=== PATIENT | female | born 1965 | race Caucasian/White ===

== ENCOUNTER 2017-02-15 11:31 | Inpatient (IN) | payer OTHER ==
[~2017-02-15] VITALS: Ht 167.6 cm; Wt 54.8 kg
[2017-02-15] VITALS (9 sets, daily range): BP systolic 138–169; BP diastolic 79–99; PULSE 61–95; RESP 16–18; TEMP 96.5–99.1; O2SAT 96–100
--- NOTE | 2017-02-15 11:49 | PD ---
Physical Exam Time Seen by Provider: 11:47 Narrative 51 y/o female with 5-6 days of fatigue sent here by psychiatrist for abnormal labs. Hgb 3.4, wbc 2., PLT 83. Vital signs reviewed. Seen at triage desk. Awaiting bed placement. Data Data Last Documented VS Vital Signs Date Time Temp Pulse Resp B/P Pulse Ox O2 Delivery O2 Flow Rate FiO2 02/15/17 11:32 99.1 153/79 Room Air [facility] Medical Record Reviewed: Yes Supervised Visit with BOBBY: No Irvin Brizuela Feb 15, 2017 11:49
[2017-02-15 11:57] LABS: MEAN CORPUSCULAR HGB CONC 27.2 % (32.0-36.0)
[2017-02-15 12:29] LABS: AUTOMATED NEUTROPHIL # 2.4 TH/MM3 (1.8-7.7); BASOPHIL % 0.7 % (0.0-2.0); EOSINOPHIL # 0.1 TH/MM3 (0-0.4); EOSINOPHIL % 1.8 % (0.0-4.0); LYMPH % 15.8 % (9.0-44.0); LYMPHOCYTE # 0.5 TH/MM3 (1.0-4.8); MEAN CELL VOLUME 65.4 FL (80.0-100.0); MEAN CORPUSCULAR HEMOGLOBIN 17.8 PG (27.0-34.0); MONO % 5.8 % (0.0-8.0); NEUT % 75.9 % (16.0-70.0); PLATELET COUNT 86 TH/MM3 (150-450); RED BLOOD COUNT 2.35 MIL/MM3 (4.00-5.30); RED CELL DISTRIBUTION WIDTH 22.2 % (11.6-17.2); WHITE BLOOD COUNT 3.2 TH/MM3 (4.0-11.0)
[2017-02-15 12:31] LABS: HEMO FLAGS AUTO DIFF
[2017-02-15 12:38] LABS: HEMATOCRIT 15.3 % (35.0-46.0)
[2017-02-15 12:39] LABS: APTT (PATIENT) 22.3 SEC (24.3-30.1); PROTHROMBIN TIME - PATIENT 10.5 SEC (9.8-11.6)
[2017-02-15 12:52] LABS: ALT (GPT) 20 U/L (10-53); ANION GAP 6 MEQ/L (5-15); AST (GOT) 12 U/L (15-37); BICARBONATE 24.8 MEQ/L (21.0-32.0); BLOOD UREA NITROGEN 18 MG/DL (7-18); CHLORIDE 110 MEQ/L (98-107); GLOMERULAR FILTRATION RATE 73 ML/MIN (>89); POTASSIUM 4.1 MEQ/L (3.5-5.1); SODIUM (NA) 141 MEQ/L (136-145)
[2017-02-15 12:55] LABS: ALKALINE PHOSPHATASE 85 U/L (45-117); TOTAL BILIRUBIN ADULT 0.6 MG/DL (0.2-1.0)
[2017-02-15 13:24] LABS: OVALOCYTES 1+ (NORMAL); TEARDROP RBCS 1+ (NORMAL)
[2017-02-15 13:25] LABS: PLATELET ESTIMATE SMEAR LOW (NORMAL); PLATELET MORPHOLOGY ENLARGED (NORMAL); SCAN/DIFF AUTO DIFF CONFIRMED
[2017-02-15] MEDS ORDERED: SODIUM CHLOR 0.9% 1000 ML INJ 1,000 ML IV SCH (13:59)
[2017-02-15] MEDS ORDERED: SODIUM CHLOR 0.9% 250 ML INJ 250 ML IV ONE (14:00)
[2017-02-15] MEDS ORDERED: ACETAMINOPHEN 325 MG TAB PO ONE (14:00)
[2017-02-15] MEDS ORDERED: FAMOTIDINE 20 MG/2 ML VIAL IV PUSH ONE (14:15)
[2017-02-15] MEDS ORDERED: PANTOPRAZOLE SODIUM 40 MG VIAL IVP ONE (14:15)
--- NOTE | 2017-02-15 15:03 | PD ---
HPI Chief Complaint: Abnormal Results Time Seen by Provider: 15:02 Travel History International Travel<30 days: No Contact w/Intl Traveler<30days: No Traveled to known affect area: No History of Present Illness HPI 51-year-old female that presents to the ED for evaluation of abnormal results. Per patient she has a history of GI bleeds in the past and has needed transfusions in the past. Per patient she has had dark stools but they became more normal 3 days ago. Per patient she's been feeling fatigued and has had a headache as well as week. Per patient she has had no trista bleeding otherwise. She takes no blood thinners. She states that she's had colonoscopies and EGDs done last time 6 months ago which were essentially unremarkable. Patient has not seen her doctor for this. Per patient she is recently moving here from a different location. Per patient she has not doctors in the area. Per patient her headache is 7 out of 10. She denies any head injury or loss of consciousness. She does have a history of depression here per patient she does have a history of anemia in the past. Per patient her symptoms usually worsened with stress. She is not sure as to what she's had but from what she tells me appears that she has peptic ulcer disease. PFSH Past Medical History Anemia: Yes Bipolar Disorder: Yes Depression: Yes Gastrointestinal Disorders: Yes ("upper GI ulcers") Thyroid Disease: Yes (hypo) Influenza Vaccination: No ?: Not Social History Alcohol Use: No Tobacco Use: No (5 cigs a day) Substance Use: Yes (THC every so often) Allergies-Medications (Allergen,Severity, Reaction): Coded Allergies: No Known Allergies (Unverified , 02/15/17) Reported Meds & Prescriptions Reported Meds & Active Scripts Active Reported Olanzapine 5 Mg Tab 5 Mg PO HS Fluoxetine (Fluoxetine HCl) 20 Mg Capsule 20 Mg PO DAILY Review of Systems Except as stated in HPI: all other systems reviewed are Neg Physical Exam Narrative GENERAL: SKIN: Warm and dry. HEAD: Atraumatic. Normocephalic. EYES: Pupils equal and round. No scleral icterus. No injection or drainage. ENT: No nasal bleeding or discharge. Mucous membranes pink and moist. Tongue is midline. No uvula deviation. NECK: Trachea midline. No JVD. CARDIOVASCULAR: Regular rate and rhythm. No murmurs, S3, S4. RESPIRATORY: No accessory muscle use. Clear to auscultation. Breath sounds equal bilaterally. GASTROINTESTINAL: Abdomen soft, non-tender, nondistended. Hepatic and splenic margins not palpable. MUSCULOSKELETAL: Extremities without clubbing, cyanosis, or edema. No obvious deformities. Full range of motion of the upper and lower extremities bilaterally. 2+ pulses bilaterally. NEUROLOGICAL: Awake and alert. No obvious cranial nerve deficits. Motor grossly within normal limits. Five out of 5 muscle strength in the arms and legs. Normal speech. PSYCHIATRIC: Appropriate mood and affect; insight and judgment normal. Data Data Last Documented VS Vital Signs Date Time Temp Pulse Resp B/P Pulse Ox O2 Delivery O2 Flow Rate FiO2 02/15/17 14:34 83 18 138/82 100 Room Air 02/15/17 14:29 2 02/15/17 11:32 99.1 Orders Type And Screen (02/15/17 11:55) Complete Blood Count With Diff (02/15/17 11:55) Comprehensive Metabolic Panel (02/15/17 11:55) Act Partial Throm Time (Ptt) (02/15/17 11:55) Prothrombin Time / Inr (Pt) (02/15/17 11:55) Red Blood Cells (Rbc) (02/15/17 13:58) Blood Product Administration .UPON TRANSFUSION (02/15/17 13:58) Sodium Chlor 0.9% 250 Ml Inj (Ns 250 Ml (02/15/17 14:00) Acetaminophen (Tylenol) (02/15/17 14:00) Sodium Chlor 0.9% 1000 Ml Inj (Ns 1000 M (02/15/17 13:59) Pantoprazole Inj (Protonix Inj) (02/15/17 14:15) Famotidine Inj (Pepcid Inj) (02/15/17 14:15) Pantoprazole Inj (Protonix Inj) (02/15/17 15:15) Acetamin-Hydrocod 325-5 Mg ([place] 5-325 (02/15/17 15:30) Admit To Inpatient (02/15/17 ) Vital Signs (Adult) Q4H (02/15/17 15:43) Activity Oob Ad Juanita (02/15/17 15:43) Intake + Output MARISOL.QSHIFT (02/15/17 15:43) Diet Liquid (02/15/17 Dinner) Sodium Chloride 0.9% Flush (Ns Flush) (02/15/17 15:45) Sodium Chloride 0.9% Flush (Ns Flush) (02/15/17 21:00) Pantoprazole (Protonix) (02/16/17 09:00) Red Blood Cells (Rbc) (02/15/17 15:43) Inpatient Certification (02/15/17 ) Hematocrit (Hct) (02/16/17 06:00) Hemoglobin (Hgb) (02/16/17 06:00) Blood Product Administration .UPON TRANSFUSION (02/15/17 15:43) Instruction (02/15/17 15:43) Admit Order (Ed Use Only) (02/15/17 15:51) Labs Laboratory Tests Test 02/15/17 02/15/17 02/15/17 12:07 14:28 15:43 White Blood Count 3.2 TH/MM3 Red Blood Count 2.35 MIL/MM3 Hemoglobin 4.2 GM/DL Hematocrit 15.3 % Mean Corpuscular Volume 65.4 FL Mean Corpuscular Hemoglobin 17.8 PG Mean Corpuscular Hemoglobin 27.2 % Concent Red Cell Distribution Width 22.2 % Platelet Count 86 TH/MM3 Mean Platelet Volume 9.4 FL Neutrophils (%) (Auto) 75.9 % Lymphocytes (%) (Auto) 15.8 % Monocytes (%) (Auto) 5.8 % Eosinophils (%) (Auto) 1.8 % Basophils (%) (Auto) 0.7 % Neutrophils # (Auto) 2.4 TH/MM3 Lymphocytes # (Auto) 0.5 TH/MM3 Monocytes # (Auto) 0.2 TH/MM3 Eosinophils # (Auto) 0.1 TH/MM3 Basophils # (Auto) 0.0 TH/MM3 CBC Comment AUTO DIFF Differential Comment AUTO DIFF CONFIRMED Platelet Estimate LOW Platelet Morphology Comment ENLARGED Tear Drop Cells 1+ Ovalocytes 1+ Prothrombin Time 10.5 SEC Prothromb Time International 1.0 RATIO Ratio Activated Partial 22.3 SEC Thromboplast Time Sodium Level 141 MEQ/L Potassium Level 4.1 MEQ/L Chloride Level 110 MEQ/L Carbon Dioxide Level 24.8 MEQ/L Anion Gap 6 MEQ/L Blood Urea Nitrogen 18 MG/DL Creatinine 0.83 MG/DL Estimat Glomerular Filtration 73 ML/MIN Rate Random Glucose 85 MG/DL Calcium Level 8.6 MG/DL Total Bilirubin 0.6 MG/DL Aspartate Amino Transf 12 U/L (AST/SGOT) Alanine Aminotransferase 20 U/L (ALT/SGPT) Alkaline Phosphatase 85 U/L Total Protein 7.2 GM/DL Albumin 3.8 GM/DL Blood Type A POSITIVE Antibody Screen NEGATIVE Crossmatch Leukocyte-Reduced Leukocyte-Reduced Red Blood Red Blood Cells Cells Blood Bank Comment MDM Medical Decision Making Medical Screen Exam Complete: Yes Emergency Medical Condition: Yes Medical Record Reviewed: Yes Interpretation(s) CBC & BMP Diagram 02/15/17 12:07 coags WNL LFTs WNL Differential Diagnosis Anemia versus symptomatic anemia versus bleeding versus GI bleed versus normal exam Narrative Course 51-year-old female that presents to the ED for evaluation of symptomatic anemia. Patient was properly examined and was found to have signs and symptoms consistent appears to be anemia. Pulse was done at triage that showed a hemoglobin of 4.4. She has a history of GI bleeds but Hemoccult here was done and was negative. At this time recommendation is for blood transfusion. Patient was started on protonic secondary to her history of GI bleed. Case was discussed with Dr. Keller who agrees to admission. Patient agrees with this plan. Patient was admitted for symptomatic anemia. Dr Demarco agrees to admission. HemaPrompt Point of Care Internal Pos. & Neg. Controls: Passed Fecal Specimen Occult Blood: Negative Diagnosis Primary Impression: Anemia Qualified Code: D64.9 - Anemia, unspecified type Admitting Information Admitting Physician Requests: Chito Jones Feb 15, 2017 15:03
[2017-02-15] MEDS ORDERED: OLAN5TAB PO (15:10)
[2017-02-15] MEDS ORDERED: FLUO20CA12 PO (15:10)
[2017-02-15] MEDS ORDERED: PANTOPRAZOLE INJ 80 MG in SODIUM CHLORIDE 0.9% INJ 100 ML IV SCH (15:15)
[2017-02-15] MEDS ORDERED: ACETAMINOPHEN/HYDROcodone 325 MG/5 MG TAB PO ONE ×2 (15:30→23:15)
[2017-02-15] MEDS ORDERED: SODIUM CHLORIDE 0.9% FLUSH 10 ML FLUSH IV FLUSH PRN (15:45)
--- NOTE | 2017-02-15 17:44 | HHI.HP ---
[facility] Service [facility] Primary Care Physician No Primary Care Physician Admission Diagnosis symptomatic anemia, GI bleeding history Diagnoses: (1) Anemia due to gastrointestinal blood loss Diagnosis: Principal Chief Complaint: Dizzy, tired Travel History International Travel<30 Days: No Contact w/Intl Traveler <30 Da: No Traveled to Known Affected Are: No History of Present Illness 51-year-old white female with a history bipolar, depression was seen at [facility] and sent here after findings of low blood count. She states that during the past month she's had on and off black tarry stools. She states during the past week she has not seen any black stools or bloody stools. She does have history of peptic ulcer disease and had a EGD colonoscopy performed at [facility] a year ago. She states that she does not take PPI or any [id number] medication for this due to her financial challenges. She states that she does not take [id number] aspirin or NSAIDs. She denies any associated abdominal pain with these symptoms. She states that she prefers to not undergo another invasive procedure such as EGD colonoscopy she responds the blood transfusion. She is currently feeling anxious is requesting medications. She was just started on Prozac and Zyprexa by physicians at the [facility] Review of Systems Constitutional: COMPLAINS OF: Fatigue, Dizziness, DENIES: Fever, Chills, Change in appetite Endocrine: DENIES: Heat/cold intolerance Eyes: DENIES: Blurred vision, Eye pain, Vision loss Ears, nose, mouth, throat: DENIES: Hearing loss, Nasal discharge, Throat pain, Ear Pain, Sinus Pain Respiratory: COMPLAINS OF: Shortness of breath, DENIES: Cough, Sputum production Cardiovascular: COMPLAINS OF: Palpitations, DENIES: Chest pain, Dyspnea on Exertion, Lower Extremity Edema Gastrointestinal: DENIES: Abdominal pain, Black stools, Bloody stools, Constipation, Diarrhea, Nausea, Vomiting Genitourinary: DENIES: Dysuria Musculoskeletal: DENIES: Joint pain, Muscle aches, Stiffness Integumentary: DENIES: Rash Hematologic/lymphatic: DENIES: Bruising, Lymphadenopathy Immunologic/allergic: DENIES: Eczema Neurologic: DENIES: Headache, Localized weakness, Paresthesias Psychiatric: COMPLAINS OF: Anxiety, DENIES: Depression, Suicidal Ideation Past Family Social History Past Medical History Peptic ulcer disease Depression Bipolar Hypothyroidism Past Surgical History None Reported Medications She states that she just start Prozac 20 mg by mouth daily Zyprexa 5 mg by mouth daily at bedtime Allergies: Coded Allergies: No Known Allergies (Unverified , 02/15/17) Social History Does not drink alcohol, does smoke 5 cigarettes daily Physical Exam Vital Signs Vital Signs Date Time Temp Pulse Resp B/P Pulse Ox O2 Delivery O2 Flow Rate FiO2 02/15/17 14:34 83 18 138/82 100 Room Air 02/15/17 14:29 18 98 Nasal Cannula 2 02/15/17 11:50 90 16 96 02/15/17 11:32 99.1 153/79 Room Air Physical Exam GENERAL: This is a well-nourished, well-developed patient, in no apparent distress. SKIN: No rashes, ecchymoses or lesions. Cool and dry. HEAD: Atraumatic. Normocephalic. No temporal or scalp tenderness. EYES: Pupils equal round and reactive. Extraocular motions intact. No scleral icterus. No injection or drainage. ENT: Nose without bleeding, purulent drainage or septal hematoma. Throat without erythema, tonsillar hypertrophy or exudate. Uvula midline. Airway patent. NECK: Trachea midline. No JVD or lymphadenopathy. Supple, nontender, no meningeal signs. CARDIOVASCULAR: Mild tachycardia regular rhythm RESPIRATORY: Clear to auscultation. Breath sounds equal bilaterally. No wheezes , rales, or rhonchi. GASTROINTESTINAL: Abdomen soft, non-tender, nondistended. No hepato-splenomegaly , or palpable masses. No guarding. Normoactive bowel sounds, patient deferred a rectal exam. Guaiac was done in the emergency room which was negative MUSCULOSKELETAL: Extremities without clubbing, cyanosis, or edema. No joint tenderness, effusion, or edema noted. No calf tenderness. Negative Homans sign bilaterally. NEUROLOGICAL: Awake and alert. Cranial nerves II through XII intact. Motor and sensory grossly within normal limits. Five out of 5 muscle strength in all muscle groups. Normal speech. Laboratory Laboratory Tests Test 02/15/17 02/15/17 02/15/1717 12:07 14:28 15:43 16:23 White Blood Count 3.2 Red Blood Count 2.35 Hemoglobin 4.2 Hematocrit 15.3 Mean Corpuscular Volume 65.4 Mean Corpuscular Hemoglobin 17.8 Mean Corpuscular Hemoglobin 27.2 Concent Red Cell Distribution Width 22.2 Platelet Count 86 Mean Platelet Volume 9.4 Neutrophils (%) (Auto) 75.9 Lymphocytes (%) (Auto) 15.8 Monocytes (%) (Auto) 5.8 Eosinophils (%) (Auto) 1.8 Basophils (%) (Auto) 0.7 Neutrophils # (Auto) 2.4 Lymphocytes # (Auto) 0.5 Monocytes # (Auto) 0.2 Eosinophils # (Auto) 0.1 Basophils # (Auto) 0.0 CBC Comment AUTO DIFF Differential Comment AUTO DIFF CONFIRMED Platelet Estimate LOW Platelet Morphology Comment ENLARGED Tear Drop Cells 1+ Ovalocytes 1+ Prothrombin Time 10.5 Prothromb Time International 1.0 Ratio Activated Partial 22.3 Thromboplast Time Sodium Level 141 Potassium Level 4.1 Chloride Level 110 Carbon Dioxide Level 24.8 Anion Gap 6 Blood Urea Nitrogen 18 Creatinine 0.83 Estimat Glomerular Filtration 73 Rate Random Glucose 85 Calcium Level 8.6 Total Bilirubin 0.6 Aspartate Amino Transf 12 (AST/SGOT) Alanine Aminotransferase 20 (ALT/SGPT) Alkaline Phosphatase 85 Total Protein 7.2 Albumin 3.8 Blood Type A POSITIVE A POSITIVE Antibody Screen NEGATIVE Crossmatch Leukocyte-Reduced Leukocyte-Reduced Red Blood Red Blood Cells Cells Blood Bank Comment Result Diagram: 02/15/17 1207 02/15/17 1207 Assessment and Plan Problem List: (1) Anemia due to gastrointestinal blood loss ICD Code: D50.0 Status: Acute Assessment and Plan 1. Severe anemia likely due to suspected GI bleed.We'll transfuse total 4 units packed red blood cell. Check iron panel, start iron, IV fluid hydration supportive care. Repeat hemoglobin the morning. Continue with Protonix and supportive care. Patient currently hemodynamically stable with no signs of active bleed. She is declining any invasive procedure unless medically emergently needed. 2. History of depression, bipolarcontinue with home medications Prozac and Zyprexa. Add Xanax when necessary for acute anxiety. 3. DVT prophylaxisbilateral SCDs, no anticoagulation due to GI bleed. Physician Certification 2 Midnight Certification Type: Admission for Inpatient Services Order for Inpatient Services The services are ordered in accordance with Medicare regulations or non- Medicare payer requirements, as applicable. In the case of services not specified as inpatient-only, they are appropriately provided as inpatient services in accordance with the 2-midnight benchmark. Estimated LOS (days): 2 days is the estimated time the patient will need to remain in the hospital, assuming treatment plan goals are met and no additional complications. Post-Hospital Plan: Home Jenna Demarco MD Feb 15, 2017 17:44
[2017-02-15] MEDS: ALPRAZolam 0.25 MG TAB PO PRN (18:59)
[2017-02-15 19:16] LABS: TRANSFERRIN IRON PROFILE 402 MG/DL (200-360)
[2017-02-15] MEDS: SODIUM CHLORIDE 0.9% FLUSH 10 ML FLUSH IV FLUSH SCH (20:06)
[2017-02-15] MEDS ORDERED: OLANZapine 5 MG TAB PO SCH (21:00)
[2017-02-15] MEDS ORDERED: NICOTINE 7 MG/24 HR PATCH T-DERMAL ONE (23:15)
[2017-02-15] MEDS ORDERED: cloNIDine HCL 0.1 MG TAB PO ONE (23:15)
[2017-02-16] VITALS (10 sets, daily range): BP systolic 131–166; BP diastolic 89–111; PULSE 72–86; RESP 15–20; TEMP 96.4–97; O2SAT 97–100
[2017-02-16] MEDS ORDERED: ACETAMINOPHEN 325 MG TAB PO PRN (08:15)
[2017-02-16] MEDS: SODIUM CHLORIDE 0.9% FLUSH 10 ML FLUSH IV FLUSH SCH (08:54)
[2017-02-16] MEDS: ACETAMINOPHEN/HYDROcodone 325 MG/5 MG TAB PO PRN ×2 (08:56→14:30)
[2017-02-16] MEDS ORDERED: FLUoxetine HCL 20 MG CAP PO SCH (09:00)
[2017-02-16] MEDS ORDERED: PANTOPRAZOLE SOD 40 MG DELAYED RELEASE TAB PO SCH ×2 (09:00)
[2017-02-16] MEDS ORDERED: REMOVE OLD PATCH-NICOTINE T-DERMAL ONE (09:00)
[2017-02-16 11:36] LABS: HEMATOCRIT 26.6 % (35.0-46.0)
[2017-02-16] MEDS: FERROUS SULFATE 325 MG (65 MG ELEMENTAL IRON) TAB PO SCH ×2 (12:55→16:26)
[2017-02-16] MEDS ORDERED: ENALAPRILAT 1.25 MG/ML VIAL IV PRN (13:15)
[2017-02-16] MEDS ORDERED: PILL SPLITTER OTHER PRN (13:30)
[2017-02-16] MEDS ORDERED: LISINOPRIL 5 MG TAB PO ONE (13:30)
[2017-02-16] MEDS ORDERED: NORC5TAB PO (13:40)
[2017-02-16] MEDS ORDERED: PANT40TA3 PO (13:46)
[2017-02-16] MEDS ORDERED: FERR325T20 PO (13:47)
--- NOTE | 2017-02-16 13:48 | HHI.DCPOC ---
Discharge Care Plan Diagnosis: (1) Anemia due to gastrointestinal blood loss Goals to Promote Your Health * To prevent worsening of your condition and complications * To maintain your health at the optimal level Directions to Meet Your Goals Take your medications as prescribed Follow your dietary instruction Follow activity as directed NO aspirin or NSAID ( ibuprofen or motrin or aleve) Keep your appointments as scheduled Take your immunizations and boosters as scheduled If your symptoms worsen call your PCP, if no PCP go to Urgent Care Center or Emergency Room Smoking is Dangerous to Your Health. Avoid second hand smoke Call the 24-hour hour crisis hotline for domestic abuse at Jenna Demarco MD Feb 16, 2017 13:48
--- NOTE | 2017-02-16 14:37 | HHI.PR ---
Subjective Remarks Patient states that she is feeling better. Wants to go home. No abdominal pain. Still declines any further procedures for workup. She is requesting pain medications for her intermittent headaches Objective Vitals Vital Signs Date Time Temp Pulse Resp B/P Pulse Ox O2 Delivery O2 Flow Rate FiO2 02/16/17 12:00 86 20 166/104 99 02/16/17 09:59 16 02/16/17 08:00 96.9 74 15 163/111 99 02/16/17 05:18 96.4 84 16 143/89 97 02/16/17 04:56 96.4 83 16 131/93 100 02/16/17 04:50 96.4 83 16 131/93 100 02/16/17 02:14 97.0 72 16 138/90 100 02/16/17 01:54 96.5 80 16 138/91 98 02/16/17 01:38 96.5 80 16 138/91 98 02/16/17 00:30 96.9 77 18 141/98 98 02/15/17 22:50 97.3 79 16 157/99 100 02/15/17 22:34 96.5 61 16 169/93 100 02/15/17 20:50 96.6 83 18 163/83 100 02/15/17 19:17 83 18 158/91 99 Room Air 02/15/17 18:26 98.0 80 18 140/97 98 02/15/17 17:52 98.2 95 18 166/84 98 Room Air 02/15/17 14:34 83 18 138/82 100 Room Air I/O 02/15/17 02/15/17 02/15/17 02/16/17 02/16/17 02/16/17 07:00 15:00 23:00 07:00 15:00 23:00 Intake Total 525 ml 1200 ml 600 ml Balance 525 ml 1200 ml 600 ml Intake Oral 240 ml 1200 ml 600 ml Packed Cells 285 ml # Voids 4 6 # Bowel Movements 2 Result Diagram: 02/16/17 1103 02/15/17 1207 Objective Remarks GENERAL: This is a well-nourished, well-developed patient, in no apparent distress. CARDIOVASCULAR: Regular rate and rhythm RESPIRATORY: Clear to auscultation. Breath sounds equal bilaterally. No wheezes , rales, or rhonchi. GASTROINTESTINAL: Abdomen soft, non-tender, nondistended. Normal active bowel sounds MUSCULOSKELETAL: Extremities without clubbing, cyanosis, or edema. NEURO: Alert & Oriented x4 to person, place, time, situation. Moves all ext x4 A/P Problem List: (1) Anemia due to gastrointestinal blood loss ICD Code: D50.0 Status: Acute Assessment and Plan 1. Severe anemia likely due to suspected GI bleed.We'll transfuse total 4 units packed red blood cell. iron panel reviewed with the patient, start iron, status post IV fluid hydration supportive care. Repeat hemoglobin stable after transfusion Continue with Protonix and convert and fusion to oral and continue supportive care. Patient currently hemodynamically stable with no signs of active bleed. 2. History of depression, bipolarcontinue with home medications Prozac and Zyprexa. Add Xanax when necessary for acute anxiety. 3. DVT prophylaxisbilateral SCDs, no anticoagulation due to GI bleed. 4. Elevated blood pressure question anxiety versus questionable withdrawal symptoms- lisinopril given, follow-up as an outpatient. Discharge Planning Discharge patient to home Condition on discharge: Improved Regular Diet as tolerated Ad Juanita activity Rx written: iron Protonix 40 mg by mouth daily [place] 5/325 one by mouth every 4 hours care for pain 20 tablets given Follow-up with primary care physician Jenna Demarco MD Feb 16, 2017 14:37
[2017-02-16] MEDS: ALPRAZolam 0.25 MG TAB PO PRN (16:26)
== END 2017-02-16 16:54 | disposition home or self-care (01) | DRG 812 ==
LOC: NEPE 11:31 → OBSVTOIN 15:53 → NEDA 15:53 → HOCA 20:39
PROVIDERS: ADMIT Family Medicine; ATTEND Family Medicine
PROC: 30233N1 Transfusion of Nonautologous Red Blood Cells into Peripheral Vein, Percutaneous Approach (ICD-10-PCS; principal; 2017-02-15)
DX: D62 Acute posthemorrhagic anemia (principal); K92.2 Gastrointestinal hemorrhage, unspecified; E03.9 Hypothyroidism, unspecified; Z87.11 Personal history of peptic ulcer disease; F31.9 Bipolar disorder, unspecified; Z72.0 Tobacco use; R51 Headache
CPT/HCPCS: 36430; 80053; 83540; 83550; 85014; 85018; 85025; 85610; 85730; 86850; 86900; 86901; 86920; C9113; J7030; J7050; P9016